=== PATIENT | male | born 1995 | race Caucasian/White ===

== ENCOUNTER 2016-05-10 01:14 | Emergency (ER) | payer SELFPAY ==
--- NOTE | 2016-05-19 13:53 | ER ---
ADMIT: 05/10/2016 RM/LOC: ER [facility] MR#: [id number] [address] [id number] COOKIE PRITCHETT [address] [place] [address] Emergency Room Report SEX: M AGE: 20 : 1995 DATE: 05/10/2016 ADDENDUM: A 20-year-old male, who was brought in by family members for being unresponsive. They state that he did drink quite a bit of alcohol this evening. Initially, the patient will not arouse and only has minimal response to noxious stimuli. He Was still protecting his airway. We got an IV started. I started giving him a normal saline bolus and monitored him on court monitor and O2 saturation. His alcohol level was a little over 200. The rest of his labs were unremarkable. After the first hour to hour and a half, he began being quite a bit more alert, and after approximately 2 hours, the patient was significantly more alert and able to sit up and answer questions. He was discharged home in stable and improved condition with a diagnosis of alcohol intoxication. Flo Vicente MD/ cara JOB #: [id number] CC: Flo Vicente MD, Attending Physician Mark Rush MD, Family Physician
== END 2016-05-10 04:05 | disposition home or self-care (01) ==
LOC: ER 01:14
DX: F10.129 Alcohol abuse with intoxication, unspecified (principal); Y90.7 Blood alcohol level of 200-239 mg/100 ml